=== PATIENT | male | born 1995 | race Two or more races ===

== ENCOUNTER → 2025-04-14 | Emergency (ER) | payer OTHER ==
[~2025-04-14] VITALS: Ht 188 cm; Wt 108.9 kg
[~2025-04-14] MED LIST: DEXAMETHASONE SODIUM PHOSPHATE 4 MG/ML VIAL IM ONE; GUAIFEN/DEXTROMETHORPHAN/PE 10 ML BLIST.PACK PO ONE; ZITHROMAX500 MG PO
[2025-04-14 04:45] LABS: BASO % 1.0 % (0.1-1.2); EOS # 0.32 (0.04-0.54); EOS % 5.4 % (0.7-7.0); LYMPH # 1.26 (1.18-3.74); LYMPH % 21.1 % (19.3-53.1); MEAN PLATELET VOLUME 11.70 fl (9.4-12.4); MONO # 0.75 (0.24-0.82); NEUT # 3.56 (1.56-6.13); NEUT % 59.7 % (34.0-71.1); RED CELL DISTRIBUTION WIDTH 14.4 % (11.6-14.4)
[2025-04-14 05:04] LABS: MONO % 12.6 % (4.7-12.5)
[2025-04-14 06:19] LABS: COVID-19 AG NEGATIVE (NEGATIVE)
== END | disposition home or self-care (01) ==
LOC: ER 02:53
PROVIDERS: General Practice
DX: J06.9 Acute upper respiratory infection, unspecified (principal); Z20.822 Contact with and (suspected) exposure to COVID-19; Z88.5 Allergy status to narcotic agent